=== PATIENT | male | born 1995 | race Caucasian/White ===

== ENCOUNTER 2017-12-16 03:26 | Emergency (ER) | payer SELFPAY ==
[2017-12-16 03:28] VITALS: BP 126/93
--- NOTE | 2017-12-16 03:31 | ER Report ---
History and Physical Time Seen By MD: 03:25 HPI/ROS CHIEF COMPLAINT: Assisted clearance HISTORY OF PRESENT ILLNESS: 21-year-old male brought in by police for custodial clearance. Patient voices no complaints. Patient denies any significant medical history. Patient has slurred speech consistent with alcohol intoxication. REVIEW OF SYSTEMS: Respiratory: No cough, no dyspnea. Cardiovascular: No chest pain, no palpitations. Gastrointestinal: No vomiting, no abdominal pain. Musculoskeletal: No back pain. Allergies: Coded Allergies: No Known Drug Allergies (Unverified , 12/16/17) Home Meds No Active Prescriptions or Reported Meds Reviewed Nurses Notes: Yes Old Medical Records Reviewed: Yes Constitutional Vital Sign - Last 24 Hours 12/16/17 03:28 Temp 98.4 Pulse 115 Resp 16 B/P (MAP) 126/93 Pulse Ox 93 O2 Delivery Room Air Physical Exam General Appearance: The patient is alert, has no immediate need for airway protection and no current signs of toxicity. Palpation of the head and neck reveals no tenderness or trauma, patient has slurred speech consistent with alcohol intoxication HEENT: Pupils equal and round no injection. TMs normal, oropharynx without dental trauma Respiratory: Chest is non tender, lungs are clear to auscultation. No chest wall tenderness Cardiac: regular rate and rhythm Gastrointestinal: Abdomen is soft and non tender, no masses, bowel sounds normal. Musculoskeletal: Neck: Neck is supple and non tender. No tenderness in the midline Extremities have full range of motion and are non tender. No evidence of trauma Skin: No rashes or lesions. DIFFERENTIAL DIAGNOSIS: After history and physical exam differential diagnosis was considered for custodial clearance, alcohol intoxication, polysubstance abuse Medical Decision Making ED Course/Re-evaluation ED Course Patient was admitted to an examination room. H&P was done. The differential diagnoses was considered. On clinical examination. Patient has stable vital signs. He voices no complaints. He has no findings of injury. He appears alcohol intoxicated. He is medically cleared for custodial admission. Decision to Disposition Date: Dec 16, 2017 Decision to Disposition Time: 03:28 Depart Departure Latest Vital Signs Vital Signs Date Time Temp Pulse Resp B/P (MAP) Pulse Ox O2 Delivery O2 Flow Rate FiO2 12/16/17 03:28 98.4 115 16 126/93 93 Room Air Impression: Primary Impression: Medical clearance for incarceration Additional Impression: Alcohol intoxication Condition: Improved Disposition: [facility] TO RESIDENTIAL/CORRECTIONAL F New Scripts No Active Prescriptions or Reported Meds Patient Instructions: Alcohol Intoxication (ED) Additional Instructions: Medically cleared for custodial admission Problem Qualifiers Additional Impression: Alcohol intoxication Complication of substance-induced condition: uncomplicated Qualified Codes: F10.920 - Alcohol use, unspecified with intoxication, uncomplicated IZZY LANDA DO Dec 16, 2017 03:31
== END 2017-12-16 03:37 ==
LOC: ER 03:31
DX: F10.920 Alcohol use, unspecified with intoxication, uncomplicated (principal)
CPT/HCPCS: 99283